=== PATIENT | female | born 1960 | race Caucasian/White ===

== ENCOUNTER 2018-02-06 20:36 | Emergency (ER) | payer OTHER ==
[~2018-02-06] VITALS: Ht 165.1 cm; Wt 136.1 kg
[2018-02-06] MEDS ORDERED: NAPR500T14 (20:55)
[2018-02-06] MEDS ORDERED: HYDROCODONE-AC1 EACH (20:55)
[2018-02-06] MEDS ORDERED: COZAAR100 MG (20:55)
[2018-02-06] MEDS ORDERED: LEVOXYL25 MCG (20:56)
[2018-02-06] MEDS ORDERED: METROPOLOL (20:56)
[2018-02-06] MEDS ORDERED: [UNRECOGNIZED DRUG - OTHER] (20:57)
== END 2018-02-06 22:03 | disposition home or self-care (01) ==
LOC: ER 20:36
DX: M99.01 Segmental and somatic dysfunction of cervical region (principal)

== ENCOUNTER 2020-09-15 05:27 | Emergency (ER) | payer OTHER ==
[~2020-09-15] VITALS: Ht 165.1 cm; Wt 154.2 kg
[~2020-09-15 05:27] MED LIST: COZAAR100 MG; HYDROCODONE-AC1 EACH; IPRAT-ALBUT 0.5-3 ML IH; LEVOXYL25 MCG; MEDROLPACK PO; METROPOLOL; MUCINEX DM ER1 EAC1 PO; NAPR500T14; PREDNISOLO15 MG/5 ML; TESSALON PERLE100 M1 PO; [UNRECOGNIZED DRUG - OTHER]
[2020-09-15] MEDS ORDERED: TOPROL XL25 M1 (05:37)
[2020-09-15] MEDS ORDERED: BREZTRI AEROS10.7 GM (05:38)
[2020-09-15] MEDS ORDERED: MUCINEX DM ER1 EAC1 PO (09:54)
[2020-09-15] MEDS ORDERED: XOPENEX CO1.25 MG/0. IH (09:54)
[2020-09-15] MEDS ORDERED: ZYRTEC10 MG PO (09:54)
== END 2020-09-15 10:15 | disposition home or self-care (01) ==
LOC: ER 05:27
DX: J45.998 Other asthma (principal); Z11.52 Encounter for screening for COVID-19